=== PATIENT | female | born 1940 | race Caucasian/White ===

== ENCOUNTER 2021-05-29 12:07 | Emergency (ER) | payer MEDICARE, BC ==
[2021-05-29] MEDS ORDERED: Meclizine 25 MG Tab PO ONE (13:51)
[2021-05-29] MEDS ORDERED: Losartan 50 MG Tab PO ONE (13:52)
[2021-05-29] MEDS ORDERED: Metoprolol Succinate 25 MG Tab.ER PO ONE (13:52)
[2021-05-29] MEDS ORDERED: Hydrochlorothiazide 12.5 MG Cap PO STA (13:52)
--- NOTE | 2021-05-29 13:58 | EDM.PDOC ---
ED HPI GENERAL MEDICAL PROBLEM - General Chief Complaint: Neurological Problem Stated Complaint: throwing up and dizzy Time Seen by Provider: 05/29/21 13:45 Source of Information: Reports: Patient, Old Records History Limitations: Reports: No Limitations - History of Present Illness INITIAL COMMENTS - FREE TEXT/NARRATIVE: 81 yo female presents with waxing and waning vertigo since last evening. Has vomited several times. No self tx. No hx of the same. No blood in her emesis. Was not able to keep her meds down this morning. Here with . Onset: Sudden Onset Date: 05/28/21 Duration: Hour(s):, Waxing/Waning Location: Reports: Head, Abdomen Quality: Reports: Other (no pain) Severity: Mild (now, was worse earlier) Improves with: Reports: Rest (holding head still in one place) Worsens with: Reports: Other (turning her head) Context: Reports: Other (See HPI) Associated Symptoms: Reports: Diaphoresis (at times), Nausea/Vomiting. 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 (see below) (none) - Related Data Allergies Allergy/AdvReac Type Severity Reaction Status Date / Time mirtazapine Allergy Dizziness Verified 05/08/15 10:22 sertraline HCl [From Zoloft] Allergy Fainting Verified 05/08/15 10:22 Home Meds: Home Meds Aspirin [Adult Low Dose Aspirin EC] 81 mg PO DAILY 05/05/15 [History] Biotin [Tc Biotin] 1 tab PO DAILY 05/05/15 [History] Glucosam/Chondr/Collagn/Hyalur [Glucosamine & Chondroitin Cap] 1 cap PO BID 05/05/15 [History] Losartan/Hydrochlorothiazide [Losartan-HCTZ 50-12.5 MG] 1 tab PO DAILY 05/05/15 [History] Metoprolol Succinate [Toprol XL] 12.5 mg PO BID 05/05/15 [History] Multivitamin [Multivitamins] 1 tab PO DAILY 05/05/15 [History] Smith-3 Fatty Acids [Fish Oil] 1 tab PO DAILY 05/05/15 [History] Simvastatin [Zocor] 20 mg PO DAILY 05/05/15 [History] Vitamin A 1 tab PO DAILY 05/05/15 [History] Calcium Carbonate/Vitamin D2 [Oyster Shell Calcium-Vit D Tab] 1 tab PO DAILY 05/08/15 [History] polyethylene glycoL 3350 [MiraLAX] 17 g PO BEDTIME 05/08/15 [History] raNITIdine HCl [Zantac] 300 mg PO BEDTIME 05/08/15 [History] Meclizine [Antivert] 25 mg PO Q6H PRN #36 tab.chew 05/29/21 [Rx] Ondansetron [Zofran ODT] 4 mg PO Q6H PRN #10 tab.dis 05/29/21 [Rx] Past Medical History Cardiovascular History: Reports: Hypertension [employer] History: Reports: - Infectious Disease History Infectious Disease History: Reports: Chicken Pox, Measles, Mumps - Past Surgical History GI Surgical History: Reports: Appendectomy Female Surgical History: Reports: Hysterectomy Social & Family History - Tobacco Use Tobacco Use Status *Q: Never Tobacco User - Caffeine Use Caffeine Use: Reports: Coffee - Recreational Drug Use Recreational Drug Use: No ED ROS GENERAL - Review of Systems Review Of Systems: See Below Constitutional: Reports: No Symptoms HEENT: Reports: No Symptoms, Vertigo Respiratory: Reports: No Symptoms Cardiovascular: Reports: No Symptoms GI/Abdominal: Reports: Nausea, Vomiting. Denies: Abdominal Pain, Diarrhea : Reports: No Symptoms Musculoskeletal: Reports: No Symptoms Skin: Reports: Diaphoresis (not now) Neurological: Denies: Dizziness (vertigo) Psychiatric: Reports: No Symptoms ED EXAM, NEURO - Physical Exam Exam: See Below Exam Limited By: Intoxication General Appearance: Alert, WD/WN, No Apparent Distress Eye Exam: Bilateral Eye: Normal Inspection (not having symptoms now), PERRL Ears: Normal External Exam, Normal Canal, Hearing Grossly Normal, Normal TMs Nose: Normal Inspection, No Blood Throat/Mouth: Normal Inspection, Normal Lips, Normal Oropharynx, Normal Voice, No Airway Compromise Head Exam: Atraumatic, Normocephalic Neck: Normal Inspection Respiratory/Chest: No Respiratory Distress, Lungs Clear, Normal Breath Sounds, No Accessory Muscle Use Cardiovascular: Regular Rate, Rhythm, No Edema GI/Abdominal: Normal Bowel Sounds, Soft, Non-Tender, No Distention Neurological: Alert, Normal Mood/Affect, Normal Dorsiflexion, CN II-XII Intact, No Motor/Sensory Deficits, Oriented x 3 Back Exam: Normal Inspection Extremities: Normal Inspection, Normal Range of Motion, Non-Tender, No Pedal Edema. No: Pedal Edema Psychiatric: Normal Affect, Normal Mood Skin Exam: Warm, Dry, Intact, Normal Color, No Rash Course - Vital Signs Last Recorded V/S: Last Vital Signs Temp 35.9 C L 05/29/21 12:48 Pulse 68 05/29/21 14:40 Resp 16 05/29/21 12:48 BP 124/67 05/29/21 14:40 Pulse Ox 95 05/29/21 12:48 - Orders/Labs/Meds Meds: Medications Discontinued Medications Generic Name Dose Route Start Last Admin Trade Name Freq PRN Reason Stop Dose Admin Hydrochlorothiazide 12.5 mg 05/29/21 13:52 05/29/21 14:39 Hydrochlorothiazide 12.5 Mg Cap PO 05/29/21 13:53 12.5 mg NOW STA Administration Losartan Potassium 50 mg 05/29/21 13:52 05/29/21 14:40 Losartan 50 Mg Tab PO 05/29/21 13:53 50 mg ONETIME ONE Administration Meclizine HCl 25 mg 05/29/21 13:51 05/29/21 14:16 Meclizine 25 Mg Tab PO 05/29/21 13:52 25 mg ONETIME ONE Administration Metoprolol Succinate 12.5 mg 05/29/21 13:52 05/29/21 14:40 Metoprolol Succinate 25 Mg Tab.Er PO 05/29/21 13:53 12.5 mg ONETIME ONE Administration Ondansetron HCl 4 mg 05/29/21 14:57 05/29/21 15:02 Ondansetron 4 Mg Tab.Dis PO 05/29/21 14:58 4 mg ONETIME ONE Administration - Re-Assessments/Exams Free Text/Narrative Re-Assessment/Exam: 05/29/21 14:58 Less dizzy and nausea, still some. Departure - Departure Time of Disposition: 15:40 Disposition: Home, Self-Care 01 Condition: Fair Clinical Impression: Vertigo Nausea & vomiting Qualifiers: Vomiting type: unspecified Vomiting Intractability: non-intractable Qualified Code(s): R11.2 - Nausea with vomiting, unspecified - Discharge Information *PRESCRIPTION DRUG MONITORING PROGRAM REVIEWED*: Not Applicable *COPY OF PRESCRIPTION DRUG MONITORING REPORT IN PATIENT PANCHITO: Not Applicable Prescriptions: Meclizine [Antivert] 25 mg PO Q6H PRN #36 tab.chew PRN Reason: Dizziness Ondansetron [Zofran ODT] 4 mg PO Q6H PRN #10 tab.dis PRN Reason: Nausea Instructions: Vertigo, [id number] Referrals: Akosua Hernandez DO [Primary Care Provider] - Forms: ED Department Discharge Additional Instructions: Use meclizine every 6 hrs as needed for vertigo control. Use Zofran every 6 hrs for nausea control. Drink enough fluids so that your urine is light yellow in color. If any of your symptoms persist after today, then I would like you to see your doctor for recheck before the weekend. Sepsis Event Note (ED) - Focused Exam Vital Signs: Vital Signs Temp Pulse Pulse Resp BP BP Pulse Ox 05/29/21 14:40 68 124/67 05/29/21 12:48 35.9 C L 60 16 169/74 H 95
[2021-05-29 14:41] VITALS: BP 124/67; PULSE 68
[2021-05-29] MEDS ORDERED: Ondansetron 4 MG Tab.DIS PO ONE (14:57)
== END 2021-05-29 15:50 | disposition home or self-care (01) ==
LOC: JP.ED 12:07
DX: R42 Dizziness and giddiness (principal); R11.2 Nausea with vomiting, unspecified; I10 Essential (primary) hypertension; Z88.8 Allergy status to other drugs, medicaments and biological substances; Z79.82 Long term (current) use of aspirin; Z79.899 Other long term (current) drug therapy
CPT/HCPCS: 99283; A9270